=== PATIENT | male | born 1965 | race Caucasian/White ===

== ENCOUNTER 2024-01-28 18:04 | Inpatient (IN) | payer OTHER ==
[~2024-01-28] VITALS: Ht 167.6 cm; Wt 78.0 kg
--- NOTE | 2024-01-28 18:56 | ED.PDOC ---
History of Present Illness HPI Comments 59 y/o M, with a Hx of pre-DM, uncontrolled HTN, kidney stones, PE, and polysubstance use and a FMHx of CA, presents with c/o RLQ abdominal and right- lower back pain, nausea, vomiting, hematuria, and constipation for 1x week, today. Patient endorses on unprovoked onset of symptoms that he has no prior Hx of in the past. Patient comments on pain, occasionally, radiating from his RLQ to his back whenever laying in a supine position for prolong periods of time. He rates pain a 3/10 and having no additional modifiers and is, now, dry-heaving. Patient also reports on having a fever that has since subsided, early, this week. Patient also notes noticing small traces of blood in his urine along with not seeing a medical provider for >3 years. Patient endorses no additional relevant or pertinent Hx along with any recent injuries, sick contact, travel, spoiled food intake, or additional substance use/exposure. He denies having any hematemesis, diarrhea, dysuria, fever, chills, or other associated symptoms or modifiers at this time. Time Seen by MD: 18:40 Primary Care Provider: AUBREY Reviewed Notes: Nurses Notes, Medications, Allergies Allergies: Coded Allergies: NO KNOWN ALLERGIES (Unverified , 08/28/15) Home Meds Unable to Obtain Active Prescriptions or Reported Meds Information Source: Patient Mode of Arrival: Ambulatory Severity: Moderate Timing: Weeks Duration: Since onset Prehospital treatment: None Past Medical History PAST MEDICAL HISTORY: DM (pre-DM), HTN (uncontrolled ), Kidney Stones, PE Surgical History (Other): bilateral hands and arms Sx, right foot Sx Family History Family History: No family hx of DM, No family hx of Heart stephen, No family hx of HTN, No family hx ofKidney stephen, No family hx of Liver stephen, No family hx of Lung stephen, No family hx of Stroke, Family hx of Cancer (pancreatic and lung CA) Social History Smoker: Cigarettes Alcohol: Occasionally Drugs: Denies Drug Use Lives In: Home Constitutional: denies: chills, diaphoresis, fatigue, fever, malaise, sweats, weakness, others EENTM: denies: blurred vision, double vision, ear bleeding, ear discharge, ear drainage, ear pain, ear ringing, eye pain, eye redness, hearing loss, mouth pain, mouth swelling, nasal discharge, nose bleeding, nose congestion, nose pain, photophobia, tearing, throat pain, throat swelling, voice changes, others Respiratory: denies: cough, hemoptysis, orthopnea, SOB at rest, shortness of breath, SOB with excertion, stridor, wheezing, others Cardiovascular: denies: chest pain, dizzy spells, diaphoresis, Dyspnea on exertion, edema, irregular heart beat, left arm pain, lightheadedness, palpitations, PND, syncope, others Gastrointestinal: reports: abdominal pain, constipated, nausea, vomiting; denies: abdomen distended, blood streaked bowels, diarrhea, dysphagia, difficulty swallowing, hematemesis, melena, poor appetite, poor fluid intake, rectal bleeding, rectal pain, others Genitourinary: reports: hematuria; denies: burning, dysuria, flank pain, frequency, incontinence, penile discharge, penile sore, pain, testicle pain, testicle swelling, urgency, others Neurological: denies: dizziness, fainting, headache, left sided numbness, left sided weakness, numbness, paresthesia, pre-existing deficit, right sided numbness, right sided weakness, seizure, speech problems, tingling, tremors, weakness, others Musculoskeletal: reports: back pain; denies: gout, joint pain, joint swelling, muscle pain, muscle stiffness, neck pain, others Integumetry: denies: bruises, change in color, change in hair/nails, dryness, laceration, lesions, lumps, rash, wounds, others Allergic/Immunocompromised: denies: Difficulty Healing, Frequent Infections, Hives, Itching, others Hematologic/Lymphatic: denies: anemia, blood clots, easy bleeding, easy bruising, swollen glands, others Endocrine: denies: excessive hunger, excessive sweating, excessive thirst, excessive urination, flushing, intolerance to cold, intolerance to heat, unexplained weight gain, unexplained weight loss, others Psychiatric: denies: anxiety, bipolar disorder, depression, hopeless, panic disorder, schizophrenia, sleepless, suicidal, others All Other Systems: Reviewed and Negative Physical Exam General Appearance: Moderate Distress HEENT: Normal ENT Inspection, Pharynx Normal, TMs Normal Neck: Full Range of Motion, Non-Tender, Normal, Normal Inspection Respiratory: Chest Non-Tender, Lungs Clear, No Accessory Muscle Use, No Respiratory Distress, Normal Breath Sounds Cardiovascular: No Edema, No JVD, No Murmur, No Gallop, Normal Peripheral Pulses, Regular Rate/Rhythm Breast Exam: Deferred Gastrointestinal: No Organomegaly, No Pulsatile Mass, Normal Bowel Sounds, RLQ, Soft, Tenderness Genitalia: Deferred Pelvic: Deferred Rectal: Deferred Extremities: No calf tenderness, Normal capillary refill, Normal inspection, Normal range of motion, Non-tender, No pedal edema Musculoskeletal : Apperance: Normal Neurologic: Alert, carbon rod inserter II-XII nml as Tested, No Motor Deficits, Normal Affect, Normal Mood, No Sensory Deficits Cerebellar Function: Normal Reflexes: Normal Skin: Dry, Normal Color, Warm Lymphatic: No Adenopathy Was a procedure done? Was a procedure done?: No Differential Dx Considerations may include: nephrolithiasis, pyelonephritis, testicular torsion, appendicitis, diverticulitis, acute abdomen, spoiled food X-Ray, Labs, Meds, VS Vital Signs Date Time Temp Pulse Resp B/P (MAP) Pulse Ox O2 Delivery O2 Flow Rate FiO2 01/28/24 18:57 98.0 70 18 137/71 (93) 97 Lab Test 01/28/24 19:10 Range/Units White Blood Count 11.7 H 4.4-10.8 10^3/uL Red Blood Count 5.32 4.5-5.90 10^6/uL Hemoglobin 18.0 H 13.5-17.5 g/dL Hematocrit 52.1 41.0-53.0 % Mean Corpuscular Volume 97.9 80.0-100.0 fL Mean Corpuscular Hemoglobin 33.8 H 28.0-32.0 pg Mean Corpuscular Hemoglobin Concent 34.5 32.0-36.0 g/dL Red Cell Distribution Width 13.1 11.8-14.3 % Platelet Count 299 140-450 10^3/uL Mean Platelet Volume 7.5 6.9-10.8 fL Neutrophils (%) (Auto) 61.8 37.0-80.0 % Lymphocytes (%) (Auto) 24.2 10.0-50.0 % Monocytes (%) (Auto) 12.2 H 0.0-12.0 % Eosinophils (%) (Auto) 1.2 0.0-7.0 % Basophils (%) (Auto) 0.6 0.0-2.0 % Neutrophils # (Auto) 7.2 1.6-8.6 10 ^3/uL Lymphocytes # (Auto) 2.8 0.4-5.4 10 ^3/uL Monocytes # (Auto) 1.4 H 0-1.3 10 ^3/uL Eosinophils # (Auto) 0.1 0-0.8 10 ^3/uL Basophils # (Auto) 0.1 0-0.2 10 ^3/uL Nucleated Red Blood Cells 0.1 % Sodium Level 141 136-145 mmol/L Potassium Level 4.1 3.5-5.1 mmol/L Chloride Level 105 98-107 mmol/L Carbon Dioxide Level 28 20-31 mmol/L Anion Gap 8 5-15 Blood Urea Nitrogen 15 9-23 mg/dL Creatinine 1.18 0.700-1.30 mg/dL Glomerular Filtration Rate Calc 71 >90 mL/min BUN/Creatinine Ratio 12.7 10.0-20.0 Serum Glucose 104 74-106 mg/dL Calcium Level 10.7 H 8.7-10.4 mg/dL Total Bilirubin 1.1 H 0.2-1.0 mg/dL Aspartate Amino Transferase (AST) 22 13-40 U/L Alanine Aminotransferase (ALT) 102 H 7-40 U/L Alkaline Phosphatase 125 H 46-116 U/L Total Protein 8.4 H 5.7-8.2 g/dL Albumin 4.9 H 3.2-4.8 g/dL CT scan of the abdomen and pelvis shows: Impression: 1. Uncomplicated, mild rectosigmoid diverticulitis. 2. Reactive retroperitoneal lymph nodes. 3. Punctate nonobstructive right nephrolithiasis. The CBC shows an elevated white blood cell count of 11.7 The rest of the CBC is within normal limits The liver enzymes are elevated The total bilirubin is 1.1 The patient was being admitted to the hospitalist with a diagnosis of intractable abdominal pain The patient was also being admitted The patient was started on Flagyl 500 mg IV piggyback The patient will be given morphine for the pain and Zofran for the nausea Images Reviewed?: Images reviewed and evaluated by me Time of 1ST Reevaluation: 19:10 Reevaluation 1ST: Unchanged Patient Education/Counseling: Diagnosis, Treatment, Prognosis Family Education/Counseling: No Family Present Departure 1 Departure Time of Disposition: 20:22 Impression: Primary Impression: Intractable abdominal pain Additional Impression: Acute diverticulitis Disposition: ADMITTED INPATIENT Admit to: Med Surg Condition: Fair e-Prescriptions Unable to Obtain Active Prescriptions or Reported Meds Critical Care Note Critical Care Time?: No Stability Stability form required: No Heart Score Heart Score: Heart Score Response (Comments) Value History N/A 0 EKG N/A 0 Age N/A 0 Risk Factors N/A 0 Troponin N/A 0 Total 0 I personally scribed for THUY NICHOLAS MD ([email or web address]) on 01/28/24 at 18:56. Electronically submitted by Tyson France [email or web address]). THUY NICHOLAS MD Jan 28, 2024 18:56
[2024-01-28 19:48] LABS: Basophils # (auto) 0.1 10 ^3/uL (0-0.2); Basophils % (auto) 0.6 % (0.0-2.0); Lymphocytes # (auto) 2.8 10 ^3/uL (0.4-5.4); Monocytes # (auto) 1.4 10 ^3/uL (0-1.3)
[2024-01-28 19:52] LABS: Eosinophils # (auto) 0.1 10 ^3/uL (0-0.8); Eosinophils % (auto) 1.2 % (0.0-7.0); Hematocrit 52.1 % (41.0-53.0); Lymphocytes % (auto) 24.2 % (10.0-50.0); Mean Corpuscular Hemoglobin 33.8 pg (28.0-32.0); Mean Corpuscular Hgb Conc. 34.5 g/dL (32.0-36.0); Mean Corpuscular Volume 97.9 fL (80.0-100.0); Monocytes % (auto) 12.2 % (0.0-12.0); Neutrophils # (auto) 7.2 10 ^3/uL (1.6-8.6); Neutrophils % (auto) 61.8 % (37.0-80.0); Nucleated Red Blood Cells % 0.1 %; Platelet Count (auto) 299 10^3/uL (140-450); Red Blood Cells 5.32 10^6/uL (4.5-5.90); Red Cell Distribution Width 13.1 % (11.8-14.3); White Blood Cell 11.7 10^3/uL (4.4-10.8)
[2024-01-28 20:05] LABS: Anion Gap 8 (5-15); Aspartate Aminotransferase 22 U/L (13-40); BUN/Creatinine Ratio 12.7 (10.0-20.0); Blood Urea Nitrogen 15 mg/dL (9-23); Carbon Dioxide 28 mmol/L (20-31); Chloride 105 mmol/L (98-107); Glucose 104 mg/dL (74-106); Potassium 4.1 mmol/L (3.5-5.1); Sodium 141 mmol/L (136-145)
[2024-01-28 20:06] LABS: Bilirubin, Total 1.1 mg/dL (0.2-1.0)
[2024-01-28 20:07] LABS: Alanine Aminotransferase 102 U/L (7-40); Albumin 4.9 g/dL (3.2-4.8); Alkaline Phosphatase 125 U/L (46-116); Calcium 10.7 mg/dL (8.7-10.4); Total Protein 8.4 g/dL (5.7-8.2)
--- NOTE | 2024-01-28 20:14 | DVH ---
Exam: CT CT AB PEL WO CON-NO ORAL OR IV History: rlq pain Comparison Study: None TECHNIQUE: Multidetector CT of the abdomen and pelvis was performed from lung bases to pubic symphysi s. Imaging was performed without IV contrast. Axial, coronal, and sagittal multiplanar reformats were obtained from the axial data set by the technologist. RADIATION DOSE: DLP 543.97 mGy.cm; CTDI vol 9.98 mGy. Findings: Lungs: The lung bases are clear. Heart: The visualized heart is unremarkable. No cardiomegaly or pericardial effusion. Liver: Unremarkable. Gallbladder: Unremarkable. Spleen: Unremarkable Pancreas: Unremarkable Adrenals: Unremarkable Kidneys: Bilateral renal cysts. Punctate nonobstructive right nephrolithiasis. GI tract: Diverticulosis without mild inflammatory changes adjacent to the rectosigmoid colon. : Unremarkable. Vasculature: Moderate aortoiliac atherosclerosis. Lymphadenopathy: Slightly prominent retroperitoneal nodes. Peritoneum: No ascites Musculoskeletal: Mild to moderate multilevel degenerative changes of the thoracolumbar spine. Soft tissues: Moderate fat containing left inguinal hernia. Impression: 1. Uncomplicated, mild rectosigmoid diverticulitis. 2. Reactive retroperitoneal lymph nodes. 3. Punctate nonobstructive right nephrolithiasis. 4. Other non-acute, ancillary findings as described above.
[2024-01-28] MEDS ORDERED: TEMAZEPAM 15 MG CAP PO PRN (20:30)
[2024-01-28] MEDS ORDERED: ACETAMINOPHEN 325 MG TAB PO PRN (20:30)
[2024-01-28] MEDS ORDERED: HYDROcodone-ACET 5/325MG TAB PO PRN (20:30)
[2024-01-28] MEDS ORDERED: MORPHINE SULFATE INJ 2 MG/ml SYRG IV PRN (20:30)
[2024-01-28] MEDS ORDERED: ONDANSETRON HCL 4 MG/2 ML VIAL IV PRN (20:30)
[2024-01-28] MEDS: metroNIDAZOLE 500MG/100ML 100 ML IV SCH (22:00)
--- NOTE | 2024-01-28 22:32 | DVHHP2 ---
History of Present Illness Reason for Visit: Abdominal pain History of Present Illness 59-year-old male presents for evaluation of abdominal pain. Patient presents with a one-week history of worsening lower abdominal pain that occasionally radiates to his lower back. He is reports episodes of nausea with vomiting. Denies fever or chills. No diarrhea. Other acute complaints reported. Past Medical History Hypertension Past Surgical History Right foot surgery Family History Noncontributory Smoke: <1 pack per day ALCOHOL: occassional Drugs: None Lives: with Family Review of Systems Review of Systems Review of systems are currently negative otherwise addressed in HPI. Allergies: Coded Allergies: NO KNOWN ALLERGIES (Unverified , 08/28/15) Medications Current Medications Medications Dose Ordered Sig/Truong Route Start Time Stop Time Status Last Admin Dose Admin Metronidazole 100 ml @ 100 mls/hr Q8HR IV 01/28/24 22:00 Ceftriaxone Sodium 50 ml @ 100 mls/hr DAILY@09 IV 01/29/24 09:00 Pantoprazole Sodium 40 mg DAILY@0600 PO 01/29/24 06:00 Acetaminophen/ Hydrocodone Bitart 1 tab Q4HP PRN PO 01/28/24 20:30 Temazepam 15 mg QHSP PRN PO 01/28/24 20:30 Ondansetron HCl 4 mg Q4HP PRN IV 01/28/24 20:30 Acetaminophen 650 mg Q6HP PRN PO 01/28/24 20:30 Morphine Sulfate 2 mg Q6HPRN PRN IV 01/28/24 20:30 Exam Vital Signs Vital Signs Date Time Temp Pulse Resp B/P (MAP) Pulse Ox O2 Delivery O2 Flow Rate FiO2 01/28/24 18:57 98.0 70 18 137/71 (93) 97 Exam Gen: 59-year-old male in mild distress. Skin: Warm, dry, normal color and texture, no rash. HEENT: Normocephalic atraumatic, mucous membranes moist and pink. Neck: Cervical and supraclavicular nodes normal without enlargement, trachea is midline, thyroid gland is normal without masses. Pulmonary: Clear to auscultation and percussion bilaterally. Cardiac: Regular rate and rhythm. No murmur Abdomen: Soft, right lower quadrant, nondistended, bowel sounds present all 4 quadrants, no guarding, no rigidity, no organomegaly. Extremities: No cyanosis, clubbing, no edema Neuro: Cranial nerves II through XII grossly intact, normal affect and speech, no focal motor deficits. Labs/Xrays ORDERING PHYSICIAN: THUY NICHOLAS MD PROCEDURE(s): ABPL - CT AB PEL WO CON-NO ORAL OR IV REASON: rlq pain ORDER NUMBER(s): [id number], ACCESSION NUMBER(s): [id number] Exam: CT CT AB PEL WO CON-NO ORAL OR IV History: rlq pain Comparison Study: None TECHNIQUE: Multidetector CT of the abdomen and pelvis was performed from lung ba ses to pubic symphysis. Imaging was performed without IV contrast. Axial, coronal, and sagittal multiplanar reformats were obtained from the axial data set by the technologist. RADIATION DOSE: DLP 543.97 mGy.cm; CTDI vol 9.98 mGy. Findings: Lungs: The lung bases are clear. Heart: The visualized heart is unremarkable. No cardiomegaly or pericardial effusion. Liver: Unremarkable. Gallbladder: Unremarkable. Spleen: Unremarkable Pancreas: Unremarkable Adrenals: Unremarkable Kidneys: Bilateral renal cysts. Punctate nonobstructive right nephrolithiasis. GI tract: Diverticulosis without mild inflammatory changes adjacent to the rectosigmoid colon. : Unremarkable. Vasculature: Moderate aortoiliac atherosclerosis. Lymphadenopathy: Slightly prominent retroperitoneal nodes. Peritoneum: No ascites Musculoskeletal: Mild to moderate multilevel degenerative changes of the thorac olumbar spine. Soft tissues: Moderate fat containing left inguinal hernia. Impression: 1. Uncomplicated, mild rectosigmoid diverticulitis. 2. Reactive retroperitoneal lymph nodes. 3. Punctate nonobstructive right nephrolithiasis. 4. Other non-acute, ancillary findings as described above. Labs Test 01/28/24 19:10 Range/Units White Blood Count 11.7 H 4.4-10.8 10^3/uL Red Blood Count 5.32 4.5-5.90 10^6/uL Hemoglobin 18.0 H 13.5-17.5 g/dL Hematocrit 52.1 41.0-53.0 % Mean Corpuscular Volume 97.9 80.0-100.0 fL Mean Corpuscular Hemoglobin 33.8 H 28.0-32.0 pg Mean Corpuscular Hemoglobin Concent 34.5 32.0-36.0 g/dL Red Cell Distribution Width 13.1 11.8-14.3 % Platelet Count 299 140-450 10^3/uL Mean Platelet Volume 7.5 6.9-10.8 fL Neutrophils (%) (Auto) 61.8 37.0-80.0 % Lymphocytes (%) (Auto) 24.2 10.0-50.0 % Monocytes (%) (Auto) 12.2 H 0.0-12.0 % Eosinophils (%) (Auto) 1.2 0.0-7.0 % Basophils (%) (Auto) 0.6 0.0-2.0 % Neutrophils # (Auto) 7.2 1.6-8.6 10 ^3/uL Lymphocytes # (Auto) 2.8 0.4-5.4 10 ^3/uL Monocytes # (Auto) 1.4 H 0-1.3 10 ^3/uL Eosinophils # (Auto) 0.1 0-0.8 10 ^3/uL Basophils # (Auto) 0.1 0-0.2 10 ^3/uL Nucleated Red Blood Cells 0.1 % Sodium Level 141 136-145 mmol/L Potassium Level 4.1 3.5-5.1 mmol/L Chloride Level 105 98-107 mmol/L Carbon Dioxide Level 28 20-31 mmol/L Anion Gap 8 5-15 Blood Urea Nitrogen 15 9-23 mg/dL Creatinine 1.18 0.700-1.30 mg/dL Glomerular Filtration Rate Calc 71 >90 mL/min BUN/Creatinine Ratio 12.7 10.0-20.0 Serum Glucose 104 74-106 mg/dL Calcium Level 10.7 H 8.7-10.4 mg/dL Total Bilirubin 1.1 H 0.2-1.0 mg/dL Aspartate Amino Transferase (AST) 22 13-40 U/L Alanine Aminotransferase (ALT) 102 H 7-40 U/L Alkaline Phosphatase 125 H 46-116 U/L Total Protein 8.4 H 5.7-8.2 g/dL Albumin 4.9 H 3.2-4.8 g/dL Assessment/Plan Assessment/Plan Assessment Acute abdominal pain Acute diverticulitis Transaminitis Plan Admit the patient to [facility] to the hospitalist Clear liquid diet Pain management Rocephin/Flagyl Monitor LFTs Continue treatment per orders. Plan discussed with: Patient My Orders Orders - DIOGENES PANTOJA Procedure Category Date Status Time Admit ADMIT 01/28/24 Transmitted 20:26 Metronidazole PHA 01/28/24 In Process 500mg/100ml (Flagyl 22:00 Ceftriaxone 1gm/50ml PHA 01/29/24 In Process D5w (Rocephin) 09:00 Pantoprazole Tablet PHA 01/29/24 In Process (Protonix Tablet) 06:00 Hydrocodone-Acet PHA 01/28/24 In Process 5/325mg Tab ([place] 20:30 Temazepam (Restoril) PHA 01/28/24 In Process 20:30 Ondansetron Hcl PHA 01/28/24 In Process (Zofran) 20:30 Complete Blood Count LAB 01/29/24 Verified 04:00 Comprehensive LAB 01/29/24 Verified Metabolic Panel 04:00 Condition: Stable SONU 01/28/24 In Process 20:29 Acetaminophen Tablet PHA 01/28/24 In Process (Tylenol Tablet) 20:30 Clear Liq Diet DIET 01/29/24 Transmitted Breakfast Bedrest With Bathroom SONU 01/28/24 In Process Privileg 20:29 Morphine Sulfate PHA 01/28/24 In Process Injection 20:30 Date of Service: Jan 28, 2024 Billing Provider: NU PANTOJA Common Visit Codes: [id number] INP/OBS CARE (HIGH) DIOGENES PANTOJA Jan 28, 2024 22:31
[2024-01-28 23:40] VITALS: BP 130/76; PULSE 85; RESP 20; TEMP 98.3; O2SAT 95
[2024-01-29] VITALS (8 sets, daily range): BP systolic 114–138; BP diastolic 72–81; PULSE 69–81; RESP 14–18; TEMP 98.1–98.9; O2SAT 92–99
[2024-01-29] MEDS: cefTRIAXone 1GM/50ML D5W 50 ML IV ONE (00:49)
[2024-01-29] MEDS: PANTOPRAZOLE 40 MG TAB PO ONE (00:50)
[2024-01-29] MEDS: metroNIDAZOLE 500MG/100ML 100 ML IV ONE (01:35)
[2024-01-29] MEDS: MORPHINE SULFATE 4 MG/ML SYR/VIAL IV ONE (03:50)
[2024-01-29] MEDS: ONDANSETRON HCL 4 MG/2 ML VIAL IV ONE (03:50)
[2024-01-29 05:16] LABS: Basophils # (auto) 0.1 10 ^3/uL (0-0.2); Basophils % (auto) 0.5 % (0.0-2.0); Eosinophils # (auto) 0.1 10 ^3/uL (0-0.8); Eosinophils % (auto) 1.3 % (0.0-7.0); Hematocrit 46.6 % (41.0-53.0); Hemoglobin 15.9 g/dL (13.5-17.5); Lymphocytes # (auto) 2.9 10 ^3/uL (0.4-5.4); Lymphocytes % (auto) 26.8 % (10.0-50.0); Mean Corpuscular Hemoglobin 33.6 pg (28.0-32.0); Mean Corpuscular Hgb Conc. 34.1 g/dL (32.0-36.0); Mean Corpuscular Volume 98.3 fL (80.0-100.0); Monocytes # (auto) 1.3 10 ^3/uL (0-1.3); Monocytes % (auto) 12.2 % (0.0-12.0); Neutrophils # (auto) 6.4 10 ^3/uL (1.6-8.6); Neutrophils % (auto) 59.2 % (37.0-80.0); Platelet Count (auto) 297 10^3/uL (140-450); Red Blood Cells 4.74 10^6/uL (4.5-5.90); Red Cell Distribution Width 13.4 % (11.8-14.3); White Blood Cell 10.8 10^3/uL (4.4-10.8)
[2024-01-29 05:29] LABS: Albumin 4.2 g/dL (3.2-4.8); Alkaline Phosphatase 103 U/L (46-116); Anion Gap 10 (5-15); Aspartate Aminotransferase 17 U/L (13-40); BUN/Creatinine Ratio 14.6 (10.0-20.0); Blood Urea Nitrogen 15 mg/dL (9-23); Calcium 9.7 mg/dL (8.7-10.4); Carbon Dioxide 23 mmol/L (20-31); Glucose 100 mg/dL (74-106); Potassium 3.8 mmol/L (3.5-5.1); Sodium 140 mmol/L (136-145)
[2024-01-29 05:30] LABS: Total Protein 7.2 g/dL (5.7-8.2)
[2024-01-29 05:37] LABS: Alanine Aminotransferase 81 U/L (7-40); Bilirubin, Total 1.3 mg/dL (0.2-1.0); Chloride 107 mmol/L (98-107)
[2024-01-29] MEDS: PANTOPRAZOLE 40 MG TAB PO SCH (06:14)
[2024-01-29 08:14] LABS: COVID19 ANTIGEN SOFIA FIA NEGATIVE (NEGATIVE); Rapid Influenza A Negative (Negative); Rapid Influenza B Negative (Negative)
[2024-01-29] MEDS: cefTRIAXone 1GM/50ML D5W 50 ML IV SCH (10:26)
--- NOTE | 2024-01-29 13:47 | DVHPN2 ---
Assessment/Plan Assessment/Plan Progress note Subjective 59-year-old male admitted for abdominal pain, found to have diverticulitis. Started on ceftriaxone and Flagyl. Objective Physical exam Alert, oriented x3 PERRLA No JVD Right-sided rhonchi cleared out after cough S1-S2 regular rate and rhythm no murmur Abdomen mildly tender, no rebound, no guarding Moving all four extremities No lower extremity edema Lab WBC [address] abdomen with uncomplicated rectosigmoid diverticulitis, reactive retroperitoneal lymph nodes, nonobstructive right nephrolithiasis Assessment and plan Uncomplicated diverticulitis Chronic bronchitis Active smoker Reactive lymphadenopathy Leukocytosis Transaminitis Continue ceftriaxone and Flagyl Gentle IV hydration Nicotine replacement therapy Replete electrolytes Diet heart healthy DVT prophylaxis ambulatory Plan discussed with: Patient My Orders Orders - STAR POST MD Procedure Category Date Status Time * Wound Consult CONS 01/29/24 Transmitted Date of Service: Jan 29, 2024 Billing Provider: STAR POST MD Common Visit Codes: [id number] INP/OBS CARE(HIGH) STAR POST MD Jan 29, 2024 13:47
[2024-01-30 01:00] VITALS: BP 122/77; PULSE 74; RESP 17; TEMP 98.5; O2SAT 91
[2024-01-30 05:00] VITALS: BP 131/80; PULSE 80; RESP 17; TEMP 98.5; O2SAT 94
[2024-01-30 07:06] LABS: Alanine Aminotransferase 55 U/L (7-40); Albumin 4.3 g/dL (3.2-4.8); Alkaline Phosphatase 99 U/L (46-116); Anion Gap 10 (5-15); Aspartate Aminotransferase 13 U/L (13-40); BUN/Creatinine Ratio 12.3 (10.0-20.0); Bilirubin, Total 1.3 mg/dL (0.2-1.0); Blood Urea Nitrogen 13 mg/dL (9-23); Calcium 9.5 mg/dL (8.7-10.4); Carbon Dioxide 23 mmol/L (20-31); Chloride 106 mmol/L (98-107); Glucose 97 mg/dL (74-106); Sodium 139 mmol/L (136-145); Total Protein 7.1 g/dL (5.7-8.2)
[2024-01-30] MEDS ORDERED: AUG875T PO (08:20)
[2024-01-30] MEDS ORDERED: FAMO20TA10 PO (08:20)
--- NOTE | 2024-01-30 08:21 | DVHDS2 ---
Discharge Summary Date of Admission Jan 28, 2024 at 20:26 Date of Discharge: Jan 30, 2024 Labs/Diagnostic Data: Laboratory Results Test 01/30/24 05:09 01/29/24 07:00 01/29/24 04:20 Sodium Level 139 mmol/L (136-145) Potassium Level 4.0 mmol/L (3.5-5.1) Chloride Level 106 mmol/L (98-107) Carbon Dioxide Level 23 mmol/L (20-31) Anion Gap 10 (5-15) Blood Urea Nitrogen 13 mg/dL (9-23) Creatinine 1.06 mg/dL (0.700-1.30) Glomerular Filtration Rate Calc 81 mL/min (>90) BUN/Creatinine Ratio 12.3 (10.0-20.0) Serum Glucose 97 mg/dL (74-106) Calcium Level 9.5 mg/dL (8.7-10.4) Total Bilirubin 1.3 mg/dL (0.2-1.0) Aspartate Amino Transferase (AST) 13 U/L (13-40) Alanine Aminotransferase (ALT) 55 U/L (7-40) Alkaline Phosphatase 99 U/L (46-116) Total Protein 7.1 g/dL (5.7-8.2) Albumin 4.3 g/dL (3.2-4.8) Influenza Type A Antigen Negative (Negative) Influenza Type B Antigen Negative (Negative) SARS-CoV-2 Antigen (Rapid) Negative (NEGATIVE) White Blood Count 10.8 10^3/uL (4.4-10.8) Red Blood Count 4.74 10^6/uL (4.5-5.90) Hemoglobin 15.9 g/dL (13.5-17.5) Hematocrit 46.6 % (41.0-53.0) Mean Corpuscular Volume 98.3 fL (80.0-100.0) Mean Corpuscular Hemoglobin 33.6 pg (28.0-32.0) Mean Corpuscular Hemoglobin Concent 34.1 g/dL (32.0-36.0) Red Cell Distribution Width 13.4 % (11.8-14.3) Platelet Count 297 10^3/uL (140-450) Mean Platelet Volume 7.5 fL (6.9-10.8) Neutrophils (%) (Auto) 59.2 % (37.0-80.0) Lymphocytes (%) (Auto) 26.8 % (10.0-50.0) Monocytes (%) (Auto) 12.2 % (0.0-12.0) Eosinophils (%) (Auto) 1.3 % (0.0-7.0) Basophils (%) (Auto) 0.5 % (0.0-2.0) Neutrophils # (Auto) 6.4 10 ^3/uL (1.6-8.6) Lymphocytes # (Auto) 2.9 10 ^3/uL (0.4-5.4) Monocytes # (Auto) 1.3 10 ^3/uL (0-1.3) Eosinophils # (Auto) 0.1 10 ^3/uL (0-0.8) Basophils # (Auto) 0.1 10 ^3/uL (0-0.2) Nucleated Red Blood Cells 0.0 % Other Laboratory Tests 01/30/24 05:09 01/29/24 04:20 Brief Hx & Hospital Course: 59 yo M smoker admitted for abdominal pain, found to have diverticulitis, labs acceptable, vitals stable. Received ceft and flagyl inpatient. Improved symptomatically, can tolerate oral feeding. Will discharge to complete 7 days of augmentin and follow up with PCP (follow up transaminitis, diverticulitis, tobacco use and lymphadenopathy. will need age appropriate screening) Condition at Discharge: Good Final Diagnosis/Problems List uncomplicated diverticulitis Discharge Disposition: Home Discharge Instruct/Medications Diet: Regular Activity: No Restrictions, As Tolerated Follow Up/Referral: follow up with PCP for age appropriate screening Medications: augmentin twice daily for 7 days 41 Discharge Statement: "Patient was advised to return to the ER or call 911 if any headaches, dizziness, shortness of breath, chest pain, abdominal pain, bleeding, fevers, or worsening of medical condition. Patient was counseled about treatment plan, medications, possible side effects, patientverbalized understanding. All questions were answered to the best of my ability. This discharge took greater then 30 minutes in planning, reviewing documentation, counseling the patient, and discussing with other team members." ASSESSMENT ASSESSMENT Assessment Uncomplicated diverticulitis Chronic bronchitis Active smoker Reactive lymphadenopathy Leukocytosis resolved Transaminitis Date of Service: Jan 30, 2024 Billing Provider: STAR POST MD Common Visit Codes: [id number] DISCH DAY >30min STAR POST MD Jan 30, 2024 08:21
[2024-01-30 08:54] VITALS: BP 124/83; PULSE 80; RESP 14; TEMP 98.6; O2SAT 95
[2024-01-30 11:06] VITALS: TEMP 37
== END 2024-01-30 11:55 | disposition home or self-care (01) | DRG 244 ==
LOC: ER 18:04 → OVERFLOW 20:26 → EAST 01-29 08:27
PROVIDERS: ADMIT Nurse Practitioner; ATTEND Student in an Organized Health Care Education/Training Program
DX: K57.32 Diverticulitis of large intestine without perforation or abscess without bleeding (principal); E11.9 Type 2 diabetes mellitus without complications; F17.210 Nicotine dependence, cigarettes, uncomplicated; I10 Essential (primary) hypertension; J42 Unspecified chronic bronchitis; R74.01 Elevation of levels of liver transaminase levels; R59.1 Generalized enlarged lymph nodes; Z87.442 Personal history of urinary calculi; Z79.899 Other long term (current) drug therapy; Z79.4 Long term (current) use of insulin
CPT/HCPCS: 36415; 74176; 80053; 85025; 87426; 87804; G0378; J2405; J3490